=== PATIENT | female | born 1990 | race Caucasian/White ===

== ENCOUNTER 2021-01-09 18:13 | Emergency (ER) | payer OTHER ==
[~2021-01-09 18:13] MED LIST: BACTRIM DS TAB1 EACH PO
[2021-01-09] MEDS ORDERED: CYCLOBENZAPRINE5 MG PO (22:17)
[2021-01-09] MEDS ORDERED: IBUPROFEN600 MG PO (22:17)
== END 2021-01-09 22:25 | disposition home or self-care (01) ==
LOC: ER1 18:13
DX: M54.42 Lumbago with sciatica, left side (principal); F17.200 Nicotine dependence, unspecified, uncomplicated
CPT/HCPCS: 72100; 73502; 81001; 84703; 96372; 99283; J1100; J1885

== ENCOUNTER 2021-08-14 17:20 | Emergency (ER) | payer OTHER ==
[~2021-08-14 17:20] MED LIST changes: +CYCLOBENZAPRINE5 MG PO; +IBUPROFEN600 MG PO
== END 2021-08-14 20:30 | disposition home or self-care (01) ==
LOC: ER1 17:20
DX: U07.1 COVID-19 (principal)
CPT/HCPCS: 87081; 87880; 99283; U0002

== ENCOUNTER 2021-09-09 18:59 | Emergency (ER) | payer OTHER | END 2021-09-09 22:08 | disposition left against medical advice (07) | LOC: ER1 18:59 | DX: Z53.21 Procedure and treatment not carried out due to patient leaving prior to being seen by health care provider (principal) ==

== ENCOUNTER 2021-10-21 20:07 | Emergency (ER) | payer OTHER ==
[2021-10-21 22:05] LABS: HEMOGLOBIN 12.8 gm/dl (12.3-15.3); RED BLOOD COUNT 4.21 M/UL (4.00-5.10); WHITE BLOOD COUNT 8.2 K/UL (4.5-11.0)
[2021-10-21 22:31] LABS: BUN/CREATININE RATIO 22 (0-10)
== END 2021-10-22 01:25 | disposition home or self-care (01) ==
LOC: ER1 20:07
PROVIDERS: Physician Assistant
DX: O99.891 Other specified diseases and conditions complicating pregnancy (principal); R42 Dizziness and giddiness; O16.1 Unspecified maternal hypertension, first trimester; O99.331 Smoking (tobacco) complicating pregnancy, first trimester; F17.200 Nicotine dependence, unspecified, uncomplicated; Z3A.13 13 weeks gestation of pregnancy
CPT/HCPCS: 71045; 80053; 81001; 82550; 82553; 84484; 85025; 87086; 93005; 99284

== ENCOUNTER 2022-03-21 20:49 | Outpatient (CLI) | payer OTHER | END 2022-03-21 22:37 | disposition home or self-care (01) | LOC: GENOP 20:49 | DX: O99.891 Other specified diseases and conditions complicating pregnancy (principal); H53.8 Other visual disturbances; H91.90 Unspecified hearing loss, unspecified ear; Z3A.34 34 weeks gestation of pregnancy | CPT/HCPCS: 81001; 93005; G0463 ==

== ENCOUNTER 2022-03-30 21:15 | Outpatient (CLI) | payer OTHER | END 2022-03-30 23:40 | disposition home or self-care (01) | LOC: GENOP 21:15 | DX: O99.891 Other specified diseases and conditions complicating pregnancy (principal); R10.30 Lower abdominal pain, unspecified; M54.9 Dorsalgia, unspecified; Z3A.34 34 weeks gestation of pregnancy | CPT/HCPCS: 81001; G0463 ==

== ENCOUNTER 2022-04-10 16:57 | Inpatient (IN) | payer OTHER ==
[~2022-04-10] VITALS: Ht 167.6 cm; Wt 74.4 kg
[2022-04-10 18:59] LABS: HEMOGLOBIN 10.4 gm/dl (12.3-15.3); RED BLOOD COUNT 3.71 M/UL (4.00-5.10); WHITE BLOOD COUNT 9.1 K/UL (4.5-11.0)
[2022-04-10] MEDS ORDERED: METOPROLOL SUCC25 MG PO (20:25)
[2022-04-11] MEDS ORDERED: IBUPROFEN800 MG PO (12:56)
[2022-04-11] MEDS ORDERED: COLACE 100MG C100 MG PO (12:56)
[2022-04-11] MEDS ORDERED: HEMOCYTE324 MG PO (12:56)
[2022-04-12 06:02] LABS: HEMOGLOBIN 8.3 gm/dl (12.3-15.3)
[2022-04-12 06:21] LABS: BUN/CREATININE RATIO 12 (0-10)
== END 2022-04-13 14:56 | disposition home or self-care (01) | DRG 806 ==
LOC: GENOP 16:57 → OB 17:54
PROVIDERS: Obstetrics & Gynecology; ADMIT Obstetrics & Gynecology
PROC: 10E0XZZ Delivery of Products of Conception, External Approach (ICD-10-PCS; principal; 2022-04-11)
PROC: 10907ZC Drainage of Amniotic Fluid, Therapeutic from Products of Conception, Via Natural or Artificial Opening (ICD-10-PCS; 2022-04-11)
PROC: 3E033VJ Introduction of Other Hormone into Peripheral Vein, Percutaneous Approach (ICD-10-PCS; 2022-04-11)
PROC: 0UH97HZ Insertion of Contraceptive Device into Uterus, Via Natural or Artificial Opening (ICD-10-PCS; 2022-04-11)
PROC: 0HQ9XZZ Repair Perineum Skin, External Approach (ICD-10-PCS; 2022-04-11)
PROC: 4A1H7CZ Monitoring of Products of Conception, Cardiac Rate, Via Natural or Artificial Opening (ICD-10-PCS; 2022-04-11)
PROC: 10H073Z Insertion of Monitoring Electrode into Products of Conception, Via Natural or Artificial Opening (ICD-10-PCS; 2022-04-11)
PROC: 3E0234Z Introduction of Serum, Toxoid and Vaccine into Muscle, Percutaneous Approach (ICD-10-PCS; 2022-04-11)
DX: O10.92 Unspecified pre-existing hypertension complicating childbirth (principal); D62 Acute posthemorrhagic anemia; Z37.0 Single live birth; O98.42 Viral hepatitis complicating childbirth; O70.0 First degree perineal laceration during delivery; B19.20 Unspecified viral hepatitis C without hepatic coma; O99.02 Anemia complicating childbirth; O99.824 Streptococcus B carrier state complicating childbirth; Z3A.37 37 weeks gestation of pregnancy; Z82.49 Family history of ischemic heart disease and other diseases of the circulatory system; Z83.49 Family history of other endocrine, nutritional and metabolic diseases; Z23 Encounter for immunization
CPT/HCPCS: 36415; 80053; 81001; 82800; 85014; 85018; 85025; 87522; 90371; 90471; 90715; J2590